=== PATIENT | male | born 2005 | race Caucasian/White ===

== ENCOUNTER 2024-08-24 07:58 | Emergency (ER) | payer BC, SELFPAY ==
[2024-08-24 08:13] VITALS: BP 123/71
--- NOTE | 2024-08-24 09:23 | ED.GENMED ---
History of Present Illness
General
Chief Complaint: Abdominal Pain
Source: patient
Exam Limitations: none
Time Seen by Provider: 08/24/24 09:10
History of Present Illness
History of Present Illness:
See MDM
Past History
Past History
ED Past Medical History: None
ED Past Surgical History: None
Social History
Tobacco: Non-smoker
Alcohol: None
Phy Exam
Physical Exam
Physical Exam:
See MDM
Course
Orders/Labs/Results
Orders:
Orders
08/24/24 09:18
CT Abd/pel W Iv And Oral Contr Urgent
Reason For Exam: general abd pain
STOOL [C difficile Antigen & Toxins] Urgent
SAMANTHA Source: Feces/Stool
Specimen Description:
Stool Culture Urgent
SAMANTHA Source: Feces/Stool
Specimen Description:
Iohexol [Omnipaque] See Protocol PO NOW STA
08/24/24 09:29
Complete Blood Count/With Diff Urgent
Comprehensive Metabolic Panel Urgent
Lipase Urgent
08/24/24 09:45
Chlamydia/GC by PCR Urgent
SAMANTHA Source: Urine
Specimen Description:
Source:: URINE
Date Specimen was Collected: 08/24/24
Time Specimen was Collected: 09:40
Abnormal Lab Results
08/24/24
09:29
WBC 4.3 L 10^3/uL
(4.8-10.8)
Absolute Lymphs (auto) 0.7 L 10^3/uL
(1.2-3.4)
Lymphocytes % 17.4 L %
(20.5-51.1)
Monocytes % 12.7 H %
(1.7-9.3)
Glucose 102 H mg/dl
(70-99)
Total Bilirubin 1.4 H mg/dl
(0.2-1.3)
Albumin 5.1 H g/dl
(3.5-5.0)
08/24/24 09:29
08/24/24 09:29
Vital Signs
Initial and Last Documented VS:
Initial Vital Signs
Temp Pulse Resp BP Pulse Ox
97.7 F 79 16 123/71 98
08/24/24 08:13 08/24/24 08:13 08/24/24 08:13 08/24/24 08:13 08/24/24 08:13
Last Documented Vital Signs
Temp Pulse Resp BP Pulse Ox
97.7 F 60 18 133/69 98
08/24/24 08:13 08/24/24 09:43 08/24/24 09:43 08/24/24 11:00 08/24/24 11:20
MDM/Problems Addressed
Differential Diagnosis Includes:
HPI and MDM Narrative:
19-year-old male presenting with generalized abdominal cramping for the past several months. This is associated with intermittent diarrhea and constipation. He noticed the development of symptoms while he was in [place]. He went to urgent care
when he returned back and was placed on ivermectin and antibiotics, neither of which helped. Due to the ongoing symptoms, patient came the emergency department.
On exam, he is well-appearing nontoxic. He has a nontender abdominal exam. He is afebrile. Given the duration discussed the likely negative workup. If he can provide a stool sample, will send off for culture. We discussed follow-up with GI for
colonoscopy if workup negative
Physical exam
General: Well appearing and non-toxic
HEENT: protecting airway
Neck: appears supple
CV: No evidence of cyanosis
Resp: No accessory muscle use
Abd: Non-distended. Soft and nontender
Extremities: No deformities
Neuro: alert
Psych: Normal affect
Skin: Intact
Problems Addressed including Acute and Chronic Conditions affecting care:
1. Abdominal pain
Acuity: acute
Prognosis: stable
Details: Given duration of symptoms, will obtain CT
Updates
CT without acute pathology. Discussed follow-up with GI.
Differential Diagnosis (but not limited to): Colitis, Crohn's disease, food allergy
Testing considered: Abdominal ultrasound
Drug therapy (if applicable): OTC meds, please see d/c instruction regarding Rx drugs
Amount and/or Complexity of Data Reviewed
Clinical info obtained from: Patient
External data reviewed: N/A
Labs I independently reviewed (but not limited to): White blood cell count 4.3
Radiology: The CT scan was personally and independently reviewed. In addition, official CT report reviewed.
Pulse Ox: not hypoxic
EKG independently reviewed: N/A
Customer Support Specialist: N/A
Critical Care: N/A
Risk of Complication:
Social Determinants of health: Good social support
Discussed with other providers: N/A
Escalation of Care includes Admit/Obs: After being observed in the Emergency Department, pt stable for discharge.
Occasional wrong word or 'sound a like' substitutions may have occurred due to the inherent limitations of voice recognition software. Read the chart carefully and recognize, using context, where substitutions have occurred.
*Critical Care Note
Total Time (30-74mins, 75-104mins- exclusive of procedures): Not Applicable
ED Attending Note
-
Portions of this chart may have been created with voice recognition software.� Occasional wrong word or��sound alike� substitutions may have occurred due to the inherent limitations of voice recognition software.
Discharge Plan
Departure
Patient Disposition: Home (Routine Discharge)
Date of Disposition: 08/24/24
Time of Disposition: 12:44
Patient with high blood pressure during this ER visit?: No
Discharge Problem:
Abdominal pain
Instructions: Abdominal Pain
Prescriptions:
No Action
acetaminophen-codeine 10 ML solution
10 ml PO Q6HPRN PRN (Reason: pain) Qty: 3 0RF
Referrals:
June Koch MD [Family Provider] -
Kirk Vera DO [Active] -
Activity Restrictions/Additional Instructions:
Please return for any worsening symptoms.
You may return at any time if you have further concerns.
Please follow up with your doctor at the first available appointment, preferably this week.
Please make an appointment to see the [facility] consultant. Given your ongoing symptoms, you would benefit from a colonoscopy.
Thank you for choosing [facility].
Interventions
Interventions:
*Risk Screen - Suicide Last Done: 08/24/24 08:13
*General Assessment Last Done: 08/24/24 09:37
*Neglect/Abuse Screening Last Done: 08/24/24 08:13
ED- Fall Risk Assessment Last Done: 08/24/24 09:37
*ED COVID-19 Vaccine History Last Done: 08/24/24 09:37
[place]-Zrtcxb-Lpntmpwkmi Assessment Last Done: 08/24/24 09:37
Discharge Date and Time
Print Language: [place]
[2024-08-24] MEDS: OMNIPAQUE 50 ML PO (09:35)
[2024-08-24 09:37] VITALS: BMI 22.5
[2024-08-24 09:38] LABS: % Basophils 0.9 % (0-2); % Eosinophils 0.9 % (0-6); % Immature Granulocytes 0.2 % (0-0.5); % Lymphocytes 17.4 % (20.5-51.1); % Monocytes 12.7 % (1.7-9.3); % Neutrophils 67.9 % (42.2-75.2); Absolute Lymphocytes 0.7 10^3/uL (1.2-3.4); Absolute Monocytes 0.5 10^3/uL (0.1-0.6); Absolute Neutrophils 2.9 10^3/uL (1.4-6.5); Hematocrit 44.7 % (39.0-52.0); Hemoglobin 16.1 g/dL (13.0-18.0); Mean Corpuscular Hgb 30.4 pg (27.0-31.0); Mean Corpuscular Volume 84.5 fL (80.0-94.0); Mean Platelet Volume 9.5 fL (7.4-10.4); Nucleated Red Blood Cells % 0 % (-); Platelet Count 211 10^3/uL (130-400); Red Blood Cell Count 5.29 10^6/uL (4.70-6.10); Red Cell Dist. Width 12.1 % (11.5-14.5); White Blood Cell Count 4.3 10^3/uL (4.8-10.8)
[2024-08-24 09:41] VITALS: BP 119/69
[2024-08-24 09:43] VITALS: BP 119/69
[2024-08-24 09:47] LABS: ALT (SGPT) 19 U/L (0-50); AST (SGOT) 26 U/L (17-59); Albumin 5.1 g/dl (3.5-5.0); Alkaline Phosphatase 49 U/L (38-126); Blood Urea Nitrogen 19 mg/dl (9-20); Calcium 9.8 mg/dl (8.4-10.2); Carbon Dioxide 25 mmol/L (22-30); Chloride 102 mmol/L (98-107); Estimated Creatinine Clearance 107 ml/min; Glucose 102 mg/dl (70-99); Lipase 48 U/L (23-300); Potassium 4.1 mmol/L (3.5-5.1); Sodium 137 mmol/L (135-145); Total Bilirubin 1.4 mg/dl (0.2-1.3); Total Protein 7.5 g/dl (6.3-8.2); eGFR > 60.00
[2024-08-24 10:00] VITALS: BP 125/75
[2024-08-24 11:00] VITALS: BP 133/69
== END 2024-08-24 12:57 | disposition home or self-care (01) ==
LOC: EMR 07:58
PROVIDERS: EMERGENCY PHYSICIAN Student in an Organized Health Care Education/Training Program; FAMILY PHYSICIAN Pediatrics
DX: R10.9 Unspecified abdominal pain (principal); R19.7 Diarrhea, unspecified
CPT/HCPCS: 99284; 74177; 80053; 83690; 85025; 87491; 87591; Q9967